=== PATIENT | female | born 1980 | race Caucasian/White ===

== ENCOUNTER 2020-02-03 09:32 | Outpatient (NON) | payer OTHER, SELFPAY ==
[2020-02-04 21:14] LABS: SARS-CoV-2 RNA PCR Negative
== END 2020-02-03 09:33 ==
PROVIDERS: Visit Provider Nurse Practitioner Family
DX: Z20.828 Contact with and (suspected) exposure to other viral communicable diseases (principal); R05 Cough; R51.9 Headache, unspecified
CPT/HCPCS: 87635; C9803; U0003

== ENCOUNTER 2020-08-24 09:08 | Outpatient (CLI) | payer OTHER, SELFPAY ==
[2020-08-24 16:32] LABS: Hemoglobin A1C 5.1 % (<5.7)
[2020-08-24 16:40] LABS: Free T4 Free Thyroxine 1.33 ng/mL (0.78-2.19)
[2020-08-24 16:48] LABS: Total Triiodothyronine (T3) 1.23 NG/ML (0.97-1.69)
== END 2020-08-24 09:09 | disposition home or self-care (01) ==
PROVIDERS: PCP Nurse Practitioner Family; Visit Provider Internal Medicine Endocrinology, Diabetes & Metabolism
DX: E03.9 Hypothyroidism, unspecified (principal); E55.9 Vitamin D deficiency, unspecified; E66.9 Obesity, unspecified
CPT/HCPCS: 36415; 82306; 83036; 84439; 84443; 84480

== ENCOUNTER → 2021-03-16 08:49 | Outpatient (CLI) | payer OTHER, SELFPAY ==
[2021-03-17 14:36] LABS: SARS-CoV-2 RNA PCR Negative
== END ==
PROVIDERS: PCP Nurse Practitioner Family; Visit Provider Nurse Practitioner Family
DX: R05.9 Cough, unspecified (principal); R53.83 Other fatigue; Z20.822 Contact with and (suspected) exposure to COVID-19
CPT/HCPCS: C9803; U0003; U0005

== ENCOUNTER 2021-05-23 15:15 | Outpatient (CLI) | payer OTHER, SELFPAY ==
[2021-05-23 16:59] LABS: Free T4 Free Thyroxine 1.74 ng/mL (0.78-2.19)
[2021-05-26 05:46] LABS: Triiodothyronine T3 Free 3.1 pg/mL (2.3-4.2)
== END 2021-05-23 15:16 | disposition home or self-care (01) ==
LOC: ANHWCLAB 15:18
PROVIDERS: PCP Nurse Practitioner Family; Visit Provider Internal Medicine Endocrinology, Diabetes & Metabolism
DX: E03.9 Hypothyroidism, unspecified (principal); E04.9 Nontoxic goiter, unspecified
CPT/HCPCS: 36415; 84439; 84443; 84481